=== PATIENT | female | born 1935 | race Caucasian/White ===

== ENCOUNTER 2024-06-21 06:00 | Emergency (ER) | payer OTHER ==
[~2024-06-21] VITALS: Ht 162.6 cm; Wt 76.7 kg
[2024-06-21 07:14] VITALS: BP 147/74; TEMP 98
[2024-06-21 07:46] VITALS: O2SAT 98
== END 2024-06-21 07:46 | disposition home or self-care (01) ==
LOC: ER 06:06
DX: J44.9 Chronic obstructive pulmonary disease, unspecified (principal); Z20.822 Contact with and (suspected) exposure to COVID-19